=== PATIENT | male | born 1950 ===

== ENCOUNTER 2024-03-13 14:57 | Emergency (ER) | payer MEDICARE, OTHER ==
[~2024-03-13] VITALS: Ht 190.5 cm; Wt 129.3 kg
[2024-03-13 15:27] LABS: BASOPHILS ABSOLUTE AUTO 0.06 K/mm3 (0.00-0.23); BASOPHILS PERCENT AUTO 0 % (0-2); EOSINOPHILS ABSOLUTE AUTO 0.11 K/mm3 (0.00-0.68); EOSINOPHILS PERCENT AUTO 1 % (0-6); Hematocrit 46.3 % (37.0-53.0); Hemoglobin 15.4 g/dL (13.5-17.5); IMMATURE GRAN ABSOLUTE AUTO 0.08 K/mm3 (0.00-0.10); IMMATURE GRAN PERCENT AUTO 1 % (0-1); LYMPHOCYTES ABSOLUTE AUTO 2.39 K/mm3 (0.84-5.20); LYMPHOCYTES PERCENT AUTO 15 % (21-46); MONOCYTES PERCENT AUTO 9 % (4-13); Mean Corpuscular HGB 30.3 pg (26.0-34.0); Mean Corpuscular HGB Conc 33.3 g/dL (31.5-36.5); Mean Corpuscular Volume 91 fL (80-100); NEUTROPHILS ABSOLUTE AUTO 12.16 K/mm3 (1.96-9.15); NEUTROPHILS PERCENT AUTO 75 % (41-73); Platelet Count 566 K/mm3 (150-400); RDW Coefficient Variation 16.6 % (11.7-14.2); RDW Standard Deviation 54.7 fL (35.1-46.3); Red Blood Cell Count 5.08 M/mm3 (4.30-5.90)
[2024-03-13 15:39] LABS: Albumin, Blood 2.4 g/dL (3.4-5.0); Albumin/Globulin Ratio 0.4 (0.8-1.8); Bilirubin, Total 0.8 mg/dL (0.1-1.0); Bun/Creatinine Ratio 19.3 (12.0-20.0); Calcium, Blood 11.5 mg/dL (8.5-10.1); Creatinine, Blood 0.62 mg/dL (0.60-1.20); Globulin, Blood 5.4 g/dL (2.2-4.0); Potassium, Blood 4.2 mmol/L (3.5-5.5); Total Protein, Blood 7.8 g/dL (6.4-8.2)
[2024-03-13] MEDS ORDERED: ZOLPIDEM TARTRA10 MG PO (15:40)
[2024-03-13] MEDS ORDERED: PROZAC2010 PO (15:41)
[2024-03-13] MEDS ORDERED: TAMSULOSIN HCL0.4 M1 PO (15:41)
[2024-03-13] MEDS ORDERED: SYNTHROID150 MC1 PO (15:41)
[2024-03-13] MEDS ORDERED: ATOR40TA PO (15:41)
[2024-03-13] MEDS ORDERED: [UNRECOGNIZED DRUG - CODE] PO (15:41)
[2024-03-13] MEDS ORDERED: HUMALOG KW100 UNIT/1 SC (15:41)
[2024-03-13] MEDS ORDERED: LISI5 PO (15:42)
[2024-03-13] MEDS ORDERED: ESOMEPRAZOLE MA40 MG PO (15:42)
[2024-03-13] MEDS ORDERED: METFORMIN HCL500 M3 PO (15:42)
[2024-03-13] MEDS ORDERED: TRESIBA FL200 UNIT/2 SC (15:42)
[2024-03-13] MEDS ORDERED: NEURONTIN300 MG PO (15:42)
[2024-03-13] MEDS ORDERED: PIOGLITAZONE HC15 MG PO (15:42)
== END 2024-03-13 18:14 | disposition home or self-care (01) ==
LOC: ER 14:57
PROVIDERS: Emergency Medicine
DX: S20.211A Contusion of right front wall of thorax, initial encounter (principal); S70.01XA Contusion of right hip, initial encounter; E11.9 Type 2 diabetes mellitus without complications; W18.30XA Fall on same level, unspecified, initial encounter; Z79.4 Long term (current) use of insulin; Z79.84 Long term (current) use of oral hypoglycemic drugs; Z79.899 Other long term (current) drug therapy
CPT/HCPCS: 71046; 73502; 80053; 82947; 85025; 99284-25

== ENCOUNTER 2024-03-27 15:32 | Emergency (ER) | payer MEDICARE, OTHER ==
[~2024-03-27] VITALS: Ht 190.5 cm; Wt 83.9 kg
[~2024-03-27 15:32] MED LIST: ATOR40TA PO; ESOMEPRAZOLE MA40 MG PO; HUMALOG KW100 UNIT/1 SC; LISI5 PO; METFORMIN HCL500 M3 PO; NEURONTIN300 MG PO; PIOGLITAZONE HC15 MG PO; PROZAC2010 PO; SYNTHROID150 MC1 PO; TAMSULOSIN HCL0.4 M1 PO; TRESIBA FL200 UNIT/2 SC; ZOLPIDEM TARTRA10 MG PO; [UNRECOGNIZED DRUG - CODE] PO
[2024-03-27 16:09] LABS: BASOPHILS ABSOLUTE AUTO 0.07 K/mm3 (0.00-0.23); BASOPHILS PERCENT AUTO 0 % (0-2); EOSINOPHILS ABSOLUTE AUTO 0.05 K/mm3 (0.00-0.68); EOSINOPHILS PERCENT AUTO 0 % (0-6); Hematocrit 44.4 % (37.0-53.0); IMMATURE GRAN ABSOLUTE AUTO 0.08 K/mm3 (0.00-0.10); IMMATURE GRAN PERCENT AUTO 0 % (0-1); LYMPHOCYTES ABSOLUTE AUTO 2.78 K/mm3 (0.84-5.20); LYMPHOCYTES PERCENT AUTO 15 % (21-46); MONOCYTES ABSOLUTE AUTO 2.45 K/mm3 (0.16-1.47); MONOCYTES PERCENT AUTO 14 % (4-13); Mean Corpuscular HGB 30.5 pg (26.0-34.0); Mean Corpuscular HGB Conc 33.8 g/dL (31.5-36.5); Mean Corpuscular Volume 90 fL (80-100); Mean Platelet Volume 10.8 fL (9.1-12.4); NEUTROPHILS PERCENT AUTO 70 % (41-73); Platelet Count 504 K/mm3 (150-400); RDW Coefficient Variation 17.6 % (11.7-14.2); RDW Standard Deviation 56.8 fL (35.1-46.3); Red Blood Cell Count 4.92 M/mm3 (4.30-5.90); White Blood Cell Count 18.13 K/mm3 (4.00-11.30)
[2024-03-27] MEDS ORDERED: Lactated Ringer's 1,000 ML IV ONE (16:10)
[2024-03-27 16:19] LABS: Albumin, Blood 2.4 g/dL (3.4-5.0); Albumin/Globulin Ratio 0.5 (0.8-1.8); Bilirubin, Total 1.7 mg/dL (0.1-1.0); Bun/Creatinine Ratio 26.2 (12.0-20.0); Calcium, Blood 12.2 mg/dL (8.5-10.1); Creatinine, Blood 0.76 mg/dL (0.60-1.20); Globulin, Blood 5.3 g/dL (2.2-4.0); Magnesium, Blood 2.2 mg/dL (1.6-2.4); Potassium, Blood 4.2 mmol/L (3.5-5.5); Total Protein, Blood 7.7 g/dL (6.4-8.2)
[2024-03-27 18:30] LABS: Source, Urine Clean Catch
[2024-03-27 18:44] LABS: Bilirubin, Urine Neg (Neg); Blood, Urine Neg (Neg); Color, Urine Yellow (P-Yellow); Glucose Qualitative, Urine Neg (Neg); Ketones, Urine Neg (Neg); Leukocyte Esterase, Urine 1+ (Neg); Nitrite, Urine Neg (Neg); Protein, Urine 1+ (Neg); Specific Gravity, Urine 1.025 (1.003-1.022); Urobilinogen, Urine 2+ (Normal)
[2024-03-27 18:57] LABS: Appearance, Urine Hazy (Clear); Hyaline Casts 0-2 /lpf (0-2); Mucus Light (0-Heavy); Squamous Epithelial Cells Rare /hpf (Few)
[2024-03-27 18:58] LABS: Amorphous Light (0-Heavy); Bacteria Mod /hpf; Calcium Oxalate Crystals Rare /hpf; Red Blood Cells, Urine 0-2 /hpf (0-2); White Blood Cells, Urine 0-2 /hpf (0-5)
== END 2024-03-27 20:45 | disposition home or self-care (01) ==
LOC: ER 15:32
PROVIDERS: Student in an Organized Health Care Education/Training Program
DX: R53.1 Weakness (principal); E11.40 Type 2 diabetes mellitus with diabetic neuropathy, unspecified; Z79.4 Long term (current) use of insulin; Z79.84 Long term (current) use of oral hypoglycemic drugs; Z79.02 Long term (current) use of antithrombotics/antiplatelets; Z79.621 Long term (current) use of calcineurin inhibitor; Z79.899 Other long term (current) drug therapy
CPT/HCPCS: 71045; 80053; 81001; 82550; 82947; 83735; 84484; 85025; 87086; 93005; 93010; 99285-25; J7120